=== PATIENT | female | born 2000 | race Caucasian/White ===

== ENCOUNTER 2022-01-02 19:03 | Emergency (ER) | payer SELFPAY ==
[~2022-01-02] VITALS: Ht 160 cm; Wt 116.4 kg
[2022-01-02 21:05] VITALS: BP 138/90
[2022-01-02] MEDS ORDERED: KETOROLAC 30 MG/ML 1ML VIAL IV ONE (21:15)
[2022-01-02] MEDS ORDERED: NS 1,000 ML IV ONE (21:15)
[2022-01-02] MEDS ORDERED: ONDANSETRON 4MG/2ML VIAL IV ONE (21:15)
[2022-01-02 21:31] LABS: BASO % 0.5 % (0.0-1.0); EOS # 0.1 10^3/uL (0.0-0.5); EOS % 1.5 % (0.0-3.0); HEMATOCRIT 51.5 % (36.0-47.0); HEMOGLOBIN 16.5 g/dl (12.0-15.5); LYMPH # 1.7 10^3/uL (1.5-5.0); LYMPH % 26.9 % (24.0-44.0); MEAN CORPUSCULAR HEMOGLOBIN 27.5 pg (27.0-33.0); MONO # 0.6 10^3/uL (0.0-0.8); MONO % 9.7 % (2.0-8.0); NEUTROPHILS # 3.8 10^3/uL (1.5-8.5); NEUTROPHILS % 61.2 % (36.0-66.0); PLATELET COUNT, AUTOMATED 239 10^3/uL (150-450); RED BLOOD COUNT 5.99 10^6/uL (4.00-5.40); WHITE BLOOD COUNT 6.2 10^3/uL (4.0-10.0)
[2022-01-02 21:55] LABS: ALBUMIN 4.2 GM/DL (3.2-5.2); ALT/SGPT 31 U/L (12-78); BILIRUBIN,DIRECT < 0.1 MG/DL (0.0-0.2); BILIRUBIN,TOTAL 0.3 MG/DL (0.2-1.0); LIPASE 267 U/L (73-393); TOTAL PROTEIN 9.5 GM/DL (6.4-8.2)
[2022-01-02] MEDS ORDERED: ISOVUE-370 76% 100ML VIAL As Ordered ONE (23:00)
[2022-01-02] MEDS ORDERED: ONDA4TAB6 PO (23:58)
== END 2022-01-03 00:16 | disposition home or self-care (01) ==
LOC: M ED 19:03
DX: R10.84 Generalized abdominal pain (principal); R11.0 Nausea
CPT/HCPCS: 74177; 80076; 83690; 84702; 85025; 96374; 96375; 99284; J1885; J2405; Q9967